=== PATIENT | female | born 1975 | race American Indian/Alaskan Native ===

== ENCOUNTER 2016-10-15 09:17 | Emergency (ER) | payer SELFPAY ==
[2016-10-15 09:31] VITALS: BP 131/85
[2016-10-15] MEDS: NORCO 5/325 PO ONE (11:24)
--- NOTE | 2016-10-15 11:49 | Emergency Department Report ---
HPI - General Chief Complaint: Extremity Injury, Lower Time Seen by Provider: 10/15/16 11:03 - HPI HPI: The patient is a 41-year-old female who presents for evaluation of right knee pain. The patient reports a on and off pain in the right knee for the past 2 weeks, 10/10 in severity, aching in quality, exacerbated with weightbearing or ambulation. The patient denies trauma to the knee, redness, swelling, paresthesias, motor deficit in the distal right leg. ED Past Medical Hx - Past Medical History Hx Hypertension: Yes Hx Congestive Heart Failure: No Hx Diabetes: Yes (type 2) Hx Psychiatric Treatment: Yes (ANIETY) Hx Asthma: No Hx COPD: No Additional medical history: Anemia. obesity - Surgical History Past Surgical History?: No - Social History Smoking Status: Never Smoker Substance Use Type: Alcohol - Medications Home Medications: Home Medications Medication Instructions Recorded Confirmed Last Taken Type Butalb/Acetaminophen/Caffeine 1 each PO Q6H PRN #14 capsule 09/16/14 Unknown Rx [Fioricet 50-300-40 mg Capsule] Ibuprofen [Motrin] 800 mg PO Q8H PRN #60 tablet 09/16/14 Unknown Rx Azithromycin [Zithromax Z-ROSIBEL] 250 mg PO DAILY #6 tablet 01/03/15 Unknown Rx Gentamicin 0.3% Ophth Soln 2 drops OP Q8H #1 bottle 04/08/15 Unknown Rx Omeprazole Magnesium [PriLOSEC Otc] 20 mg PO QDAY #30 tablet. 07/19/15 Unknown Rx Promethazine /Codeine 5 ml PO Q6H PRN #150 ml 07/19/15 Unknown Rx [Phenergan/Codeine 6.25-10 mg/5 ml] Sulfamethoxazole/Trimethoprim 1 each PO BID #20 tablet 07/19/15 Unknown Rx [Bactrim DS TAB] metFORMIN [Glucophage] 500 mg PO DAILY #30 tablet 07/19/15 Unknown Rx Famotidine [Pepcid] 20 mg PO BID #10 tablet 02/29/16 Unknown Rx predniSONE [Deltasone] 20 mg PO BID #10 tab 02/29/16 Unknown Rx Acetaminophen/Codeine [Tylenol #3] 1 tab PO Q6H PRN #12 tab 10/15/16 Unknown Rx Ibuprofen [Motrin] 800 mg PO Q8HR PRN #15 tablet 10/15/16 Unknown Rx ED Review of Systems ROS: Stated complaint: RT KNEE GIVING OUT Other details as noted in HPI Constitutional: denies: fever ENT: denies: throat or neck pain Respiratory: denies: cough, shortness of breath Cardiovascular: denies: chest pain Endocrine: denies unexplained weight loss or gain Gastrointestinal: denies: abdominal pain, nausea Genitourinary: denies: dysuria Musculoskeletal: reports knee pain denies: leg swelling Skin: denies: rash Neurological: denies: headache Hematological/Lymphatic: denies: easy bleeding or easy bruising Psych: denies sadness or hopelessness Physical Exam - Physical Exam Vital Signs: Vital Signs 10/15/16 09:28 Temperature 98.3 F Pulse Rate 68 Respiratory 17 Rate Blood Pressure 131/85 O2 Sat by Pulse 100 Oximetry Physical Exam: General: well-nourished, well-developed, no acute distress Head: Normocephalic, atraumatic Eyes: normal sclera ENT: Mucous membranes are pink and moist Neck: trachea midline, neck supple, No neck stiffness, no cervical adenopathy Respiratory: Breath sounds equal bilaterally, no wheezing, rales, or rhonchi Cardio: S1 and S2 present, no murmurs, rubs, gallops, capillary refill is brisk Abdomen: Normoactive bowel sounds, soft abdomen, no rigidity, no guarding or rebound tenderness Chest WALL/Back: No tenderness to palpation of the chest wall, no CVA tenderness with percussion Musc: Inspection of the right knee is unremarkable, tenderness to palpation present to the medial, posterior drawer sign negative, Idalia's sign negative, no knee instability, no redness, warmth, fluctuance, distal sensation, motor function, and pulses intact Skin: No rash Neuro: no facial drooping, normal speech Psych: Normal affect ED Course Vital Signs 10/15/16 09:28 Temperature 98.3 F Pulse Rate 68 Respiratory 17 Rate Blood Pressure 131/85 O2 Sat by Pulse 100 Oximetry ED Medical Decision Making - Medical Decision Making The patient's and examined by myself. The patient given a tablet of Sultan for pain. X-ray of the right knee is obtained and is negative for acute fracture or dislocation. The patient was reevaluated and reported that their symptoms were markedly improved. The patient is stable for discharge with outpatient follow-up. The patient is given follow-up and return instructions. The patient expressed understanding and agreed with the plan. The patient is discharged in stable condition. Critical care attestation.: If time is entered above; I have spent that time in minutes in the direct care of this critically ill patient, excluding procedure time. ED Disposition Clinical Impression: Acute pain of right knee Disposition: DISCHARGED TO HOME OR SELFCARE Is pt being admited?: No Does the pt Need Aspirin: No Condition: Stable Instructions: Arthralgia (ED), Knee Exercises (GEN), Patellar Tendinitis (ED) Referrals: PRIMARY CARE, [Primary Care Provider] - 3-5 Days DANIELA DE LA CRUZ MD [Staff Physician] - 3-5 Days Time of Disposition: 11:32
--- NOTE | 2016-10-15 11:51 | XRay Report ---
RIGHT KNEE, 3 views: History: Right knee pain. The bony architecture is intact without evidence of fracture or dislocation. No significant soft tissue abnormality is seen. IMPRESSION: Unremarkable right knee.
== END 2016-10-15 12:12 | disposition home or self-care (01) ==
LOC: ED 09:17
DX: M25.561 Pain in right knee (principal); I10 Essential (primary) hypertension; E11.9 Type 2 diabetes mellitus without complications
CPT/HCPCS: 99283

== ENCOUNTER 2018-07-26 09:20 | Emergency (ER) | payer MEDICAID ==
[2018-07-26 10:25] LABS: Bacteria,Urine 4+ /HPF (Negative); Bilirubin,Urine NEG (Negative); Blood,Urine NEG (Negative); Color,Urine Yellow (Yellow); Hyaline Casts,Urine 1 /LPF; Mucus,Urine FEW /HPF; Protein,Urine <15 mg/dL mg/dL (Negative); Urobilinogen,Urine < 2.0 mg/dL (<2.0)
[2018-07-26 10:26] LABS: HCG Qualitative,Urine Negative (Negative)
[2018-07-26] MEDS ORDERED: ZOFRAN ODT PO ONE (10:32)
--- NOTE | 2018-07-26 10:35 | Emergency Department Report ---
Vomiting/Diarrhea - HPI Chief Complaint: Nausea/Vomiting/Diarrhea Stated Complaint: POSS FOOD POISONING Time Seen by Provider: 07/26/18 10:16 Duration: 2 Days Severity: moderate Nausea/Vomiting Severity: Moderate Diarrhea Severity: Mild Pain Severity: None (but does get cramps before BM) Symptoms: Yes Watery Diarrhea, Yes Able to Tolerate Fluids, Yes Recent Unusual Foods (ate at a seafood restaurant 2 days ago and started feeling bad that evening), No Bloody diarrhea, No Fever, No Family w/ Similar Symptoms, No Cont acts w/ Similar Symptoms, No Rash, No Hematuria, No Recent URI Symptoms ED Review of Systems ROS: Stated complaint: POSS FOOD POISONING Other details as noted in HPI Comment: All other systems reviewed and negative ED Past Medical Hx - Past Medical History Hx Hypertension: Yes Hx Congestive Heart Failure: No Hx Diabetes: Yes (type 2) Hx Psychiatric Treatment: Yes (ANIETY) Hx Asthma: No Hx COPD: No Additional medical history: Anemia. obesity - Surgical History Past Surgical History?: No - Social History Smoking Status: Never Smoker Substance Use Type: None - Medications Home Medications: Home Medications Medication Instructions Recorded Confirmed Last Taken Type Butalb/Acetaminophen/Caffeine 1 each PO Q6H PRN #14 capsule 09/16/14 Unknown Rx [Fioricet 50-300-40 mg Capsule] Ibuprofen [Motrin] 800 mg PO Q8H PRN #60 tablet 09/16/14 Unknown Rx Azithromycin [Zithromax Z-ROSIBEL] 250 mg PO DAILY #6 tablet 01/03/15 Unknown Rx Gentamicin 0.3% Ophth Soln 2 drops OP Q8H #1 bottle 04/08/15 Unknown Rx Omeprazole Magnesium [PriLOSEC Otc] 20 mg PO QDAY #30 tablet. 07/19/15 Unknown Rx Promethazine /Codeine 5 ml PO Q6H PRN #150 ml 07/19/15 Unknown Rx [Phenergan/Codeine 6.25-10 mg/5 ml] Sulfamethoxazole/Trimethoprim 1 each PO BID #20 tablet 07/19/15 Unknown Rx [Bactrim DS TAB] metFORMIN [Glucophage] 500 mg PO DAILY #30 tablet 07/19/15 Unknown Rx Famotidine [Pepcid] 20 mg PO BID #10 tablet 02/29/16 Unknown Rx predniSONE [Deltasone] 20 mg PO BID #10 tab 02/29/16 Unknown Rx Acetaminophen/Codeine [Tylenol #3] 1 tab PO Q6H PRN #12 tab 10/15/16 Unknown Rx Cyclobenzaprine [Flexeril] 10 mg PO QHS #15 tablet 06/14/18 Unknown Rx Ibuprofen [Motrin 800 MG tab] 800 mg PO Q8HR PRN #15 tablet 06/14/18 Unknown Rx Dicyclomine [Bentyl] 10 mg PO QID #15 capsule 07/26/18 Unknown Rx Diphenoxylate/Atropine [Lomotil] 1 tab PO Q4H PRN #10 tablet 07/26/18 Unknown Rx Ondansetron [Zofran Odt] 4 mg PO Q8HR PRN #12 tab.rapdis 07/26/18 Unknown Rx Vomiting Diarrhea Exam - Exam General: Vital signs noted. No distress. Alert and acting appropriately. HEENT: Yes Moist Mucous Membranes, No Pharyngeal Erythema, No Pharyngeal Exudates, No Rhinorrhea, No Conjuctival Injection, No Frontal Tenderness, No Maxillary Tenderness Neck: No Adenopathy, No Rigidity Lungs: Yes Clear Lung Sounds, Yes Good Air Exchange, No Wheezes, No Stridor, No Cough, No Nasal Flaring, No Retractions, No Use of Accessory Muscles Heart exam: Regular: Yes, Murmur: No, Tachycardia: No Abdomen: Tenderness: No, Peritoneal Signs: No, Distention: No, Hyperactive Bowel sounds: No Skin exam: Rash: No, Edema: No, Normal turgor: Yes Neurologic: Alert and oriented, no deficits. Musculoskeletal: Unremarkable. ED Course Vital Signs 07/26/18 09:40 Temperature 99.1 F Pulse Rate 87 Respiratory 18 Rate Blood Pressure 135/84 O2 Sat by Pulse 98 Oximetry ED Medical Decision Making - Medical Decision Making pt is not appearing to be dehydrated at this time as she can tolerate some liquids. Patient was given Zofran ODT and will be discharged and prescribed with meds for symptomatic relief. Critical care attestation.: If time is entered above; I have spent that time in minutes in the direct care of this critically ill patient, excluding procedure time. ED Disposition Clinical Impression: Gastroenteritis Disposition: DC-01 TO HOME OR SELFCARE Is pt being admited?: No Does the pt Need Aspirin: No Condition: Stable Instructions: Gastroenteritis (ED), Food Poisoning (ED) Time of Disposition: 10:35
[2018-07-28 11:46] VITALS: BP 135/84
== END 2018-07-26 10:52 | disposition home or self-care (01) ==
LOC: ED 09:20
DX: K52.9 Noninfective gastroenteritis and colitis, unspecified (principal); I10 Essential (primary) hypertension; E11.9 Type 2 diabetes mellitus without complications; F41.9 Anxiety disorder, unspecified
CPT/HCPCS: 81001; 81025; Q0162

== ENCOUNTER 2018-08-11 10:25 | Emergency (ER) | payer MEDICAID ==
[2018-08-11] MEDS ORDERED: MORPHINE IV ONE ×2 (10:51→14:30)
[2018-08-11] MEDS ORDERED: ZOFRAN IV ONE (10:51)
--- NOTE | 2018-08-11 10:56 | Emergency Department Report ---
ED Chest Pain HPI - General Chief Complaint: Dyspnea/Respdistress Stated Complaint: RIGHT SIDE PAIN/SOB Time Seen by Provider: 08/11/18 10:45 Source: patient, family Mode of arrival: Wheelchair Limitations: No Limitations - History of Present Illness Initial Comments: Patient is 43 years old female with history of hypertension and diabetes. Patient presented to the ER complaining of right sided chest pain associated with shortness of breath for the last 3 days. Patient describes her pain as tightness, sharp and pulling-like pain. Patient stated that pain increase with deep inspiration. MD Complaint: chest pain -: days(s) Onset: during rest Pain Location: right chest Pain Radiation: none Severity scale (0 -10): 10 Quality: tightness, sharp - Related Data Previous Rx's Medication Instructions Recorded Last Taken Type Butalb/Acetaminophen/Caffeine 1 each PO Q6H PRN #14 capsule 09/16/14 Unknown Rx [Fioricet 50-300-40 mg Capsule] Ibuprofen [Motrin] 800 mg PO Q8H PRN #60 tablet 09/16/14 Unknown Rx Azithromycin [Zithromax Z-ROSIBEL] 250 mg PO DAILY #6 tablet 01/03/15 Unknown Rx Gentamicin 0.3% Ophth Soln 2 drops OP Q8H #1 bottle 04/08/15 Unknown Rx Omeprazole Magnesium [PriLOSEC Otc] 20 mg PO QDAY #30 tablet.dr 07/19/15 Unknown Rx Promethazine /Codeine 5 ml PO Q6H PRN #150 ml 07/19/15 Unknown Rx [Phenergan/Codeine 6.25-10 mg/5 ml] Sulfamethoxazole/Trimethoprim 1 each PO BID #20 tablet 07/19/15 Unknown Rx [Bactrim DS TAB] metFORMIN [Glucophage] 500 mg PO DAILY #30 tablet 07/19/15 Unknown Rx Famotidine [Pepcid] 20 mg PO BID #10 tablet 02/29/16 Unknown Rx predniSONE [Deltasone] 20 mg PO BID #10 tab 02/29/16 Unknown Rx Acetaminophen/Codeine [Tylenol #3] 1 tab PO Q6H PRN #12 tab 10/15/16 Unknown Rx Cyclobenzaprine [Flexeril] 10 mg PO QHS #15 tablet 06/14/18 Unknown Rx Ibuprofen [Motrin 800 MG tab] 800 mg PO Q8HR PRN #15 tablet 06/14/18 Unknown Rx Dicyclomine [Bentyl] 10 mg PO QID #15 capsule 07/26/18 Unknown Rx Diphenoxylate/Atropine [Lomotil] 1 tab PO Q4H PRN #10 tablet 07/26/18 Unknown Rx Ondansetron [Zofran Odt] 4 mg PO Q8HR PRN #12 tab.rapdis 07/26/18 Unknown Rx Allergies Allergy/AdvReac Type Severity Reaction Status Date / Time lisinopril Allergy Angioedema Verified 10/15/16 09:26 Heart Score - HEART Score History: Slightly suspicious EKG: Normal Age: < 45 Risk factors: 1-2 risk factors Troponin: < normal limit HEART Score: 1 - Critical Actions Critical Actions: 0-3 pts:0.9-1.7%risk of adverse cardiac event.Candidate for discharge ED Review of Systems ROS: Stated complaint: RIGHT SIDE PAIN/SOB Other details as noted in HPI Comment: All other systems reviewed and negative Constitutional: denies: chills, fever ENT: denies: ear pain Respiratory: cough, shortness of breath, SOB with exertion, SOB at rest. denies: orthopnea, wheezing Cardiovascular: chest pain, palpitations Gastrointestinal: denies: abdominal pain, nausea, vomiting, diarrhea, constipation, hematemesis, melena, hematochezia Musculoskeletal: denies: back pain Neurological: denies: headache, weakness ED Past Medical Hx - Past Medical History Previous Medical History?: Yes Hx Hypertension: Yes Hx Congestive Heart Failure: No Hx Diabetes: Yes (type 2) Hx Psychiatric Treatment: Yes (ANIETY) Hx Asthma: No Hx COPD: No Additional medical history: Anemia. obesity - Surgical History Past Surgical History?: No - Social History Smoking Status: Never Smoker Substance Use Type: Alcohol, Prescribed - Medications Home Medications: Home Medications Medication Instructions Recorded Confirmed Last Taken Type Butalb/Acetaminophen/Caffeine 1 each PO Q6H PRN #14 capsule 09/16/14 Unknown Rx [Fioricet 50-300-40 mg Capsule] Ibuprofen [Motrin] 800 mg PO Q8H PRN #60 tablet 09/16/14 Unknown Rx Azithromycin [Zithromax Z-ROSIBEL] 250 mg PO DAILY #6 tablet 01/03/15 Unknown Rx Gentamicin 0.3% Ophth Soln 2 drops OP Q8H #1 bottle 04/08/15 Unknown Rx Omeprazole Magnesium [PriLOSEC Otc] 20 mg PO QDAY #30 tablet.dr 07/19/15 Unknown Rx Promethazine /Codeine 5 ml PO Q6H PRN #150 ml 07/19/15 Unknown Rx [Phenergan/Codeine 6.25-10 mg/5 ml] Sulfamethoxazole/Trimethoprim 1 each PO BID #20 tablet 07/19/15 Unknown Rx [Bactrim DS TAB] metFORMIN [Glucophage] 500 mg PO DAILY #30 tablet 07/19/15 Unknown Rx Famotidine [Pepcid] 20 mg PO BID #10 tablet 02/29/16 Unknown Rx predniSONE [Deltasone] 20 mg PO BID #10 tab 02/29/16 Unknown Rx Acetaminophen/Codeine [Tylenol #3] 1 tab PO Q6H PRN #12 tab 10/15/16 Unknown Rx Cyclobenzaprine [Flexeril] 10 mg PO QHS #15 tablet 06/14/18 Unknown Rx Ibuprofen [Motrin 800 MG tab] 800 mg PO Q8HR PRN #15 tablet 06/14/18 Unknown Rx Dicyclomine [Bentyl] 10 mg PO QID #15 capsule 07/26/18 Unknown Rx Diphenoxylate/Atropine [Lomotil] 1 tab PO Q4H PRN #10 tablet 07/26/18 Unknown Rx Ondansetron [Zofran Odt] 4 mg PO Q8HR PRN #12 tab.rapdis 07/26/18 Unknown Rx ED Physical Exam - General Limitations: No Limitations General appearance: alert, in no apparent distress - Head Head exam: Present: atraumatic, normocephalic, normal inspection - Eye Eye exam: Present: normal appearance - ENT ENT exam: Present: normal exam, normal orophraynx, mucous membranes moist - Neck Neck exam: Present: normal inspection, full ROM. Absent: tenderness, meningismus, lymphadenopathy, thyromegaly - Respiratory Respiratory exam: Present: normal lung sounds bilaterally. Absent: respiratory distress, wheezes, rales, rhonchi, chest wall tenderness, accessory muscle use, decreased breath sounds, prolonged expiratory - Cardiovascular Cardiovascular Exam: Present: regular rate, normal rhythm, normal heart sounds - GI/Abdominal GI/Abdominal exam: Present: soft, normal bowel sounds. Absent: distended, tenderness, guarding, rebound, rigid, organomegaly, mass, bruit, pulsatile mass - Extremities Exam Extremities exam: Present: normal inspection, full ROM, normal capillary refill. Absent: pedal edema, calf tenderness - Back Exam Back exam: Present: normal inspection, full ROM. Absent: tenderness, CVA tenderness (R), CVA tenderness (L), muscle spasm, paraspinal tenderness, vertebral tenderness - Neurological Exam Neurological exam: Present: alert, oriented X3, CN II-XII intact, normal gait, reflexes normal - Psychiatric Psychiatric exam: Present: normal mood - Skin Skin exam: Present: warm, intact, normal color ED Course Vital Signs 08/11/18 08/11/18 08/11/18 10:32 10:34 11:15 Temperature 98.7 F 98.7 F Pulse Rate 91 H 91 H Respiratory 20 20 22 Rate Blood Pressure 125/75 Blood Pressure 125/75 [Right] O2 Sat by Pulse 99 99 97 Oximetry 08/11/18 11:17 Temperature Pulse Rate Respiratory 22 Rate Blood Pressure Blood Pressure [Right] O2 Sat by Pulse Oximetry BO score - Bo Score Age > 65: (0) No Aspirin use within the Past 7 Days: (0) No 3 or more CAD Risk Factors: (0) No 2 or more Angina events in past 24 hrs: (0) No Known CAD with more than 50% Stenosis: (0) No Elevated Cardiac Markers: (0) No ST Deviation Greater than 0.5mm: (0) No BO Score: 0 ED Medical Decision Making - Lab Data Result diagrams: 08/11/18 11:00 08/11/18 11:00 - EKG Data -: EKG Interpreted by Ak EKG shows normal: sinus rhythm Rate: normal - EKG Data Interpretation: no acute changes - Radiology Data Radiology results: report reviewed Referring Physician: BAYRON WHEELER Patient Name: KAIT ERAZO Date of : 1975 Sex: Female Report Date: 2018-08-11 Report Status: Finalized Findings [facility] [address] [place] [address] Cat Scan Report Signed Patient: KAIT ERAZO MR#: [id number] : 1975 Acct:[id number] Age/Sex: 43 / F ADM Date: 08/11/18 Loc: ED Attending Dr: Ordering Physician: BAYRON WHEELER Date of Service: 08/11/18 Procedure(s): CT angio chest Accession Number(s): [id number] cc: BAYRON WHEELER FINAL REPORT EXAM: CT ANGIO CHEST HISTORY: CHEST PAIN,SOB COMPARISON: None. TECHNIQUE: Multiple contiguous axial images were obtained through the chest after administration of IV contrast. FINDINGS: Medical devices: None. Thyroid: Normal. Lymph nodes: No significant mediastinal, hilar, or axillary lymphadenopathy. Vasculature: Normal caliber of the thoracic aorta. 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 No filling defect within the pulmonary artery and its branches to suggest pulmonary embolism. Heart: Normal heart size. Other mediastinal structures: Normal. Lung parenchyma: Consolidation in the posterior right lower lobe. Dependent atelectasis at the bilateral lung bases. Airways: Patent. No bronchiectasis. Pleura: No pleural effusion or pneumothorax. Chest wall and spine: No suspicious osseous lesions. No acute fracture or dislocation. Soft tissues are normal. Upper Abdomen: No acute abnormality. IMPRESSION: 1. No evidence of pulmonary embolism. 2. Consolidation in the posterior right lower lobe concerning for pneumonia. Transcribed By: JENNIFER Dictated By: NATALIE CLEMENTS MD Electronically Authenticated By: NATALIE CLEMENTS MD Signed Date/Time: 08/11/181355 DD/ 53 TD/TT: 08/11/18 135 - Medical Decision Making Patient is 43 years old female with history of hypertension and diabetes. Patient presented to the ER complaining of right sided chest pain associated with shortness of breath for the last 3 days. Patient describes her pain as tightness, sharp and pulling-like pain. Patient stated that pain increase with deep inspiration. EKG did not show any acute ST elevation or depression. CTA chest no evidence of pulmonary embolism but there is evidence of consultation in the right lower lobe consistent with pneumonia. Patient received 1 g of Rocephin IV and 500 mg of Zithromax IV for community-acquired pneumonia. I will discharge patient with Mr. Alexis and to follow-up with her primary care physician in the next 2-3 days. Critical care attestation.: If time is entered above; I have spent that time in minutes in the direct care of this critically ill patient, excluding procedure time. ED Disposition Clinical Impression: Chest pain, Shortness of breath, Right lower lobe pneumonia Disposition: TO HOME OR SELFCARE Is pt being admited?: No Condition: Stable Instructions: Chest Pain (ED), Bacterial Pneumonia (ED) Referrals: AMADEO KEEN MD [Primary Care Provider] - 3-5 Days
[2018-08-11 11:31] LABS: BUN/Creatinine Ratio 17; Blood Urea Nitrogen 10 mg/dL (7-17); Calcium 9.2 mg/dL (8.4-10.2); Hematocrit 38.2 % (30.3-42.9); Hemoglobin 12.1 gm/dl (10.1-14.3); Hemolysis Index 73; Mean Corpuscular HGB Conc 32 % (30-34); Mean Corpuscular Volume 83 fl (79-97); Platelet Count 263 K/mm3 (140-440); Red Blood Count 4.63 M/mm3 (3.65-5.03); Red Cell Distribution Width 15.3 % (13.2-15.2)
[2018-08-11 11:33] LABS: INR 0.83 (0.87-1.13)
[2018-08-11 12:52] LABS: Bilirubin,Urine NEG (Negative); Blood,Urine NEG (Negative); Color,Urine Yellow (Yellow); Mucus,Urine FEW /HPF; Protein,Urine <15 mg/dL mg/dL (Negative); Urobilinogen,Urine < 2.0 mg/dL (<2.0)
--- NOTE | 2018-08-11 13:21 | XRay Report ---
FINAL REPORT EXAM: XR CHEST 1V AP HISTORY: Dyspnea COMPARISON: None. TECHNIQUE: Single frontal view of the chest FINDINGS: The cardiomediastinal silhouette is normal in appearance. The lungs are clear without focal consolidation. There is no pleural effusion or pneumothorax. There is no acute soft tissue or osseous abnormality. IMPRESSION: No acute cardiopulmonary disease.
[2018-08-11 13:46] LABS: Anisocytosis 1+; Platelet Estimate Consistent w Auto; Total Cells Counted 100
--- NOTE | 2018-08-11 13:56 | Cat Scan Report ---
FINAL REPORT EXAM: CT ANGIO CHEST HISTORY: CHEST PAIN,SOB COMPARISON: None. TECHNIQUE: Multiple contiguous axial images were obtained through the chest after administration of IV contrast. FINDINGS: Medical devices: None. Thyroid: Normal. Lymph nodes: No significant mediastinal, hilar, or axillary lymphadenopathy. Vasculature: Normal caliber of the thoracic aorta. Incidental note is made of aberrant right subclavi an artery. No filling defect within the pulmonary artery and its branches to suggest pulmonary emboli sm. Heart: Normal heart size. Other mediastinal structures: Normal. Lung parenchyma: Consolidation in the posterior right lower lobe. Dependent atelectasis at the bilate ral lung bases. Airways: Patent. No bronchiectasis. Pleura: No pleural effusion or pneumothorax. Chest wall and spine: No suspicious osseous lesions. No acute fracture or dislocation. Soft tissues a re normal. Upper Abdomen: No acute abnormality. IMPRESSION: 1. No evidence of pulmonary embolism. 2. Consolidation in the posterior right lower lobe concerning for pneumonia.
[2018-08-11] MEDS ORDERED: ZITHROMAX 500 MG in NACL 0.9% 250ML 250 ML IV ONE (14:02)
[2018-08-11] MEDS ORDERED: ROCEPHIN/NS 1 GM/50 ML 1 GM/50 ML BAG IV ONE (14:02)
[2018-08-11 14:42] VITALS: BP 120/77
== END 2018-08-11 16:08 | disposition home or self-care (01) ==
LOC: ED 10:25
DX: J18.9 Pneumonia, unspecified organism (principal); I10 Essential (primary) hypertension; E11.9 Type 2 diabetes mellitus without complications; F41.9 Anxiety disorder, unspecified
CPT/HCPCS: 36415; 71045; 71275; 80048; 81001; 83690; 84484; 84703; 85007; 85025; 85379; 85610; 85730; 93005; 93010; 96365; 96367; 96375; 96376; 99285; J0456; J0696; J2270; J2405; J7050; Q9967